=== PATIENT | male | born 1965 ===

== ENCOUNTER 2022-01-11 10:09 | Day surgery (SDC) | payer OTHER ==
[~2022-01-11] VITALS: Ht 177.8 cm; Wt 105.4 kg
[~2022-01-11 10:09] MED LIST: BUSP5 PO; MOBIC15 MG PO; OLMESARTAN-HCT1 EAC5 PO
== END 2022-01-11 12:10 | disposition home or self-care (01) ==
LOC: ORSCSDS 10:09
PROVIDERS: Surgery
PROC: 0DJD8ZZ Inspection of Lower Intestinal Tract, Via Natural or Artificial Opening Endoscopic (ICD-10-PCS; principal; 2022-01-11 11:30)
DX: Z12.11 Encounter for screening for malignant neoplasm of colon (principal); Z86.010 Personal history of colon polyps; I10 Essential (primary) hypertension; E66.9 Obesity, unspecified; Z68.37 Body mass index [BMI] 37.0-37.9, adult; Z79.899 Other long term (current) drug therapy
CPT/HCPCS: J2704; J7120